=== PATIENT | female | born 1975 | race Caucasian/White ===

== ENCOUNTER 2020-12-22 09:28 | Outpatient (CLI) | payer OTHER, SELFPAY ==
--- NOTE | 2020-12-22 12:00 | NEURO_ITS ---
Impression: # Insulin dependent diabetic ,complains of chronic back pain. 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 # Needle/EMG exam revealed decreased motor unit potentials all over but no fibrillations. # Clinical correlation recommended. Nerve Conduction Studies Anti Sensory Summary Table Stim Site NR Peak (ms) P-T Amp (?V) Site1 Site2 Delta-P (ms) Dist (cm) Deonte (m/s) Left Sup Fibular Anti Sensory (Ant Lat Mall) 14 cm NR 14 cm Ant Lat Mall 16.0 Right Sup Fibular Anti Sensory (Ant Lat Mall) 14 cm 3.8 38.2 14 cm Ant Lat Mall 3.8 16.0 42 Left Sural Anti Sensory (Lat Mall) Calf 3.4 31.1 Calf Lat Mall 3.4 16.0 47 Right Sural Anti Sensory (Lat Mall) Calf 3.9 13.6 Calf Lat Mall 3.9 16.0 41 Motor Summary Table Stim Site NR Onset (ms) O-P Amp (mV) Site1 Site2 Delta-0 (ms) Dist (cm) Deonte (m/s) Left Peroneal Motor (Vastus Med) Ankle NR Popit Ankle 0.0 Popit NR Right Peroneal Motor (Vastus Med) Ankle 3.9 1.4 Popit Ankle 9.9 37.0 37 Popit 13.8 0.3 Left Tibial Motor (Abd Haque Brev) Ankle 4.6 3.0 Knee Ankle 7.3 37.0 51 Knee 11.9 2.9 Right Tibial Motor (Abd Haque Brev) Ankle 4.9 5.4 Knee Ankle 9.9 40.0 40 Knee 14.8 2.7 F Wave Studies NR F-Lat (ms) L-R F-Lat (ms) Left Peroneal (Mrkrs) (EDB) 51.23 4.09 Right Peroneal (Mrkrs) (EDB) 47.13 4.09 Left Tibial (Mrkrs) (Abd Hallucis) 54.84 1.56 Right Tibial (Mrkrs) (Abd Hallucis) 56.41 1.56 EMG Side Muscle Nerve Root Ins Act Fibs Amp Dur Recrt Comment Right AntTibialis Dp Br Fibular L4-5 Nml Nml Nml Nml Reduced Right Gastroc Tibial S1-2 Nml Nml Nml Nml Reduced Right Fibularis Long Sup Br Fibular L5-S1 Nml Nml Nml Nml Reduced Right Flex Dig Long Tibial L5-S2 Nml Nml Nml Nml Reduced Right Ext Dig Brev Dp Br Fibular L5, S1 Nml Nml Nml Nml Reduced Left AntTibialis Dp Br Fibular L4-5 Nml Nml Nml Nml Reduced Left Gastroc Tibial S1-2 Nml Nml Nml Nml Reduced Left Fibularis Long Sup Br Fibular L5-S1 Nml Nml Nml Nml Reduced Left Flex Dig Long Tibial L5-S2 Nml Nml Nml Nml Reduced Left Ext Dig Brev Dp Br Fibular L5, S1 Nml Nml Nml Nml Reduced MTDD
== END 2020-12-22 09:29 | disposition home or self-care (01) ==
PROVIDERS: PCP Physician Assistant; Visit Provider Physician Assistant
DX: M54.17 Radiculopathy, lumbosacral region (principal)
CPT/HCPCS: 95886; 95911

== ENCOUNTER 2020-12-22 11:52 | Emergency (ER) | payer OTHER, SELFPAY ==
[2020-12-22 12:01] VITALS: BP 158/87; PULSE 80; RESP 15; TEMP 36.9; O2SAT 99
--- NOTE | 2020-12-22 13:56 | ED.BACK ---
HPI - Back Pain/Injury General Chief Complaint: Back Pain/Injury Stated Complaint: Lower Back Pain Time Seen by Provider: 12/22/20 13:11 Source: patient and RN notes reviewed Mode of arrival: ambulatory Limitations: no limitations History of Present Illness HPI Narrative: Patient is 45 years old white female presented to the ED complaining of left lower back pain radiating to left lower extremity. Patient denies any recent trauma. Patient been seen by her family physician numerous times before for the same problem, currently on tramadol which is not working. History of a fall 2018 subsequently developed the above symptoms since. Patient had MRI sometime in the past, had physical therapy, also had cortisone injection. Patient had history of lower back surgery before the fall 2018.. Patient denies patient denies bowel dysfunction, bladder dysfunction, altered sensation, focal weakness, or saddle numbness,. Patient is not vaccinated for COVID-19. Patient also complaining of a cystlike lesion at the left knee anteriorly for months. Related Data Home Medications Medication Instructions Recorded Confirmed albuterol sulfate [Ventolin HFA] INHALATION 12/22/20 12/22/20 aspirin [Adult Low Dose Aspirin] 12/22/20 atorvastatin 12/22/20 calcium carbonate-vitamin D3 tablet PO 12/22/20 [Calcium 600 + D(3)] clonazepam 12/22/20 clopidogrel 12/22/20 cyclobenzaprine mg 12/22/20 ferrous gluconate mg 12/22/20 gabapentin 12/22/20 hydrocodone-acetaminophen 12/22/20 ibuprofen 12/22/20 insulin detemir U-100 [Levemir unit SUBCUT 12/22/20 FlexTouch U-100 Insuln] insulin glargine [Lantus Solostar SUBCUT 12/22/20 U-100 Insulin] insulin lispro [Humalog KwikPen unit SUBCUT 12/22/20 Insulin] lisinopril 12/22/20 metformin mg 12/22/20 metoprolol succinate PO 12/22/20 multivitamin with folic acid tablet PO 12/22/20 [Tab-A-[place]] omeprazole 12/22/20 simethicone [Gas Relief Extra mg 12/22/20 Strength] tramadol mg 12/22/20 trazodone 12/22/20 venlafaxine mg PO 12/22/20 Allergies Allergy/AdvReac Type Severity Reaction Status Date / Time ketorolac Allergy Mild Hives Verified 12/22/20 12:13 Penicillins Allergy Unknown Difficulty Verified 12/22/20 12:13 Breathing Review of Systems Review of Systems: CONSTITUTIONAL: Denies fever, chills, or sweats. EYES: Denies visual changes, redness, or discharge. ENT: Denies rhinorrhea, congestion, sore throat, or otalgia. CARDIOVASCULAR: Denies chest pain, palpitations, or edema. RESPIRATORY: Denies cough or dyspnea. GASTROINTESTINAL: Denies abdominal pain, nausea, vomiting, or diarrhea. GENITOURINARY: Denies dysuria or hematuria. SKIN: Denies rash or itching. MUSCULOSKELETAL: Denies back pain, joint pain, or myalgia. NEUROLOGIC: Denies headache, numbness, or weakness. PSYCHIATRIC: Denies anxiety or depression. [facility] Family History Family History Other Asthma Depression Diabetes mellitus Family history of chronic obstructive pulmonary disease Family history of hearing loss Family history of lung disease Social History Social History Alcohol intake: never Exam Narrative: General appearance: Well-developed, well-nourished Skin: Normal color, cystlike lesion, 1 cm at left knee anteriorly, nontender, no erythema, no warmth. Head: Normocephalic, nontraumatic Eyes: Clear conjunctiva ENT: Oropharynx normal, ears normal, nose normal Neck: Supple, nontender Chest and respiratory: Airway patent, no respiratory distress, no accessory muscle use Heart: Regular rate/rhythm Abdomen: Soft, nontender, no organomegaly, quiet bowel sounds Vascular: Normal peripheral pulses, normal capillary refill. Musculoskeletal: Moderate tenderness left buttock, no bruises, no swelling, no rash Neurologic: Alert and oriented ?3, positive straight leg raising test on the left side
== END 2020-12-22 14:20 | disposition home or self-care (01) ==
PROVIDERS: Emergency Provider Emergency Medicine; PCP Physician Assistant
DX: M54.16 Radiculopathy, lumbar region (principal); M67.462 Ganglion, left knee; Z79.82 Long term (current) use of aspirin; Z79.4 Long term (current) use of insulin
CPT/HCPCS: 95886; 95911; 96372; 99283; J1100